=== PATIENT | female | born 1995 | race African-American/Black ===

== ENCOUNTER 2017-05-10 21:29 | Emergency (ER) | payer BC, OTHER ==
[~2017-05-10] VITALS: Ht 157.5 cm; Wt 90.0 kg
[~2017-05-10 21:29] MED LIST: Z.0.NO CURRENT MEDS
[2017-05-10 21:31] VITALS: BP 141/58; PULSE 94; RESP 16; TEMP 99.5; O2SAT 99
--- NOTE | 2017-05-10 22:32 | PD ---
HPI Chief Complaint: Abdominal Pain Time Seen by Provider: 22:28 Travel History International Travel<30 days: No Contact w/Intl Traveler<30days: No Traveled to known affect area: No History of Present Illness HPI 21-year-old female that presents to the ED for evaluation of left abdominal pain. Patient has a history of recent about a month ago. Per patient she delivered twins. Patient comes here because she developed about 3 hours ago pain to her left abdomen. Patient points to the mid left abdomen as the area of most pain. Patient denies any injury or trauma. She denies any vaginal bleeding. Per patient she came off of her menses or bleeding from her C -section about a week ago. She denies any STD exposure. She denies again. She states that she is breast-feeding. She states that the pain is 5 out of 10. She denies any nausea or vomiting. No bowel movement issues. Nobody is sick in the house. No trauma. No allergies to medication. PFSH Past Medical History Diminished Hearing: No Immunizations Current: Yes ?: Not : 2 Para: 3 Past Surgical History Section: Yes Ear Surgery: Yes Social History Alcohol Use: Yes (OCC) Tobacco Use: No Substance Use: No Allergies-Medications (Allergen,Severity, Reaction): Coded Allergies: No Known Allergies (Verified , 05/10/17) Reported Meds & Prescriptions Reported Meds & Active Scripts Active No Active Prescriptions or Reported Medications Review of Systems Except as stated in HPI: all other systems reviewed are Neg Physical Exam Narrative GENERAL: SKIN: Warm and dry. HEAD: Atraumatic. Normocephalic. EYES: Pupils equal and round. No scleral icterus. No injection or drainage. ENT: No nasal bleeding or discharge. Mucous membranes pink and moist. Tongue is midline. No uvula deviation. NECK: Trachea midline. No JVD. CARDIOVASCULAR: Regular rate and rhythm. No murmurs, S3, S4. RESPIRATORY: No accessory muscle use. Clear to auscultation. Breath sounds equal bilaterally. GASTROINTESTINAL: Abdomen soft, patient has tenderness to palpation on the left mid abdomen as well as in the lower abdomen, nondistended. Hepatic and splenic margins not palpable. Pelvic exam: The with female nurse present. Patient has some whitish smelly discharge coming from the vagina. No obvious mass or adnexal tenderness. No bleeding. MUSCULOSKELETAL: Extremities without clubbing, cyanosis, or edema. No obvious deformities. NEUROLOGICAL: Awake and alert. No obvious cranial nerve deficits. Motor grossly within normal limits. Five out of 5 muscle strength in the arms and legs. Normal speech. PSYCHIATRIC: Appropriate mood and affect; insight and judgment normal. Data Data Last Documented VS Vital Signs Date Time Temp Pulse Resp B/P Pulse Ox O2 Delivery O2 Flow Rate FiO2 05/10/17 21:31 99.5 94 16 141/58 99 Room Air Orders Complete Blood Count With Diff (05/10/17 22:21) Comprehensive Metabolic Panel (05/10/17 22:21) Lipase (05/10/17 22:21) Urinalysis - C+S If Indicated (05/10/17 22:21) Iv Access Insert/Monitor (05/10/17 22:21) Ed Urine Pregnancytest Poc (05/10/17 22:21) Gc And Chlamydia Pcr (05/10/17 22:21) Wet Prep Profile (05/10/17 22:21) MDM Medical Decision Making Medical Screen Exam Complete: Yes Emergency Medical Condition: Yes Medical Record Reviewed: Yes Differential Diagnosis Abdominal pain versus pelvic pain versus vaginal discharge versus vaginitis versus UTI versus STD Narrative Course 21-year-old female that presents to the ED for evaluation of left lower abdominal pain. Patient was properly examined and was found to have signs and symptoms consistent with appears to be abdominal discomfort. Unclear etiology. Labs and imaging recommended. Case will be signed out to my attending pending disposition. Scripts No Active Prescriptions or Reported Meds Alvin Davis May 10, 2017 22:32
[2017-05-10 22:49] LABS: BASOPHIL % 0.2 % (0.0-2.0); EOSINOPHIL # 0.1 TH/MM3 (0-0.4); EOSINOPHIL % 0.9 % (0.0-4.0); HEMATOCRIT 36.2 % (35.0-46.0); HEMO FLAGS DIFF FINAL; LYMPH % 29.2 % (9.0-44.0); LYMPHOCYTE # 2.7 TH/MM3 (1.0-4.8); MEAN CORPUSCULAR HEMOGLOBIN 24.2 PG (27.0-34.0); MEAN CORPUSCULAR HGB CONC 31.4 % (32.0-36.0); MONO % 4.5 % (0.0-8.0); NEUT % 65.2 % (16.0-70.0); PLATELET COUNT 232 TH/MM3 (150-450); RED CELL DISTRIBUTION WIDTH 22.1 % (11.6-17.2); WHITE BLOOD COUNT 9.2 TH/MM3 (4.0-11.0)
[2017-05-10 23:04] LABS: ANION GAP 4 MEQ/L (5-15); AST (GOT) 11 U/L (15-37); BICARBONATE 26.8 MEQ/L (21.0-32.0); BLOOD UREA NITROGEN 11 MG/DL (7-18); CHLORIDE 108 MEQ/L (98-107); GLOMERULAR FILTRATION RATE 113 ML/MIN (>89); POTASSIUM 4.1 MEQ/L (3.5-5.1); SODIUM (NA) 139 MEQ/L (136-145)
[2017-05-10 23:06] LABS: ALT (GPT) 17 U/L (10-53)
[2017-05-10 23:08] LABS: ALKALINE PHOSPHATASE 103 U/L (45-117); TOTAL BILIRUBIN ADULT 0.3 MG/DL (0.2-1.0)
[2017-05-11 01:26] LABS: BLOOD, URINE NEG (NEG); COMMENT (UR) CULT NOT INDICATED; CULTURE IF INDICATED CULT NOT INDICATED; GLUCOSE,URINE NEG (NEG); KETONE, URINE NEG (NEG); MUCUS URINE FEW /lpf (OCC); NITRITE,URINE NEG (NEG); PH, URINE 6.5 (5.0-8.5); SQUAMOUS EPITHELIAL CELL URINE 2 /hpf (0-5); URINE COLOR YELLOW (YELLW/STRAW)
--- NOTE | 2017-05-11 02:26 | PD ---
Physical Exam Narrative GENERAL: Well-nourished, well-developed patient. SKIN: Warm and dry. HEAD: Normocephalic and atraumatic. EYES: No injection or drainage. ENT: No nasal drainage noted. NECK: Supple, trachea midline. CARDIOVASCULAR: Regular rate and rhythm RESPIRATORY:no increased effort. No accessory muscle use. GASTROINTESTINAL: Abdomen soft, ttp in llq, nondistended. NEUROLOGICAL: Awake and alert. Motor and sensory grossly within normal limits. Normal speech. Data Data Last Documented VS Vital Signs Date Time Temp Pulse Resp B/P Pulse Ox O2 Delivery O2 Flow Rate FiO2 05/10/17 21:31 99.5 94 16 141/58 99 Room Air Orders Complete Blood Count With Diff (05/10/17 22:21) Comprehensive Metabolic Panel (05/10/17 22:21) Lipase (05/10/17 22:21) Urinalysis - C+S If Indicated (05/10/17 22:21) Iv Access Insert/Monitor (05/10/17 22:21) Ed Urine Pregnancytest Poc (05/10/17 22:21) Gc And Chlamydia Pcr (05/10/17 22:21) Wet Prep Profile (05/10/17 22:21) Labs Laboratory Tests Test 05/10/17 05/10/17 05/11/17 22:26 22:45 01:13 White Blood Count 9.2 TH/MM3 Red Blood Count 4.70 MIL/MM3 Hemoglobin 11.4 GM/DL Hematocrit 36.2 % Mean Corpuscular Volume 77.0 FL Mean Corpuscular Hemoglobin 24.2 PG Mean Corpuscular Hemoglobin 31.4 % Concent Red Cell Distribution Width 22.1 % Platelet Count 232 TH/MM3 Mean Platelet Volume 8.2 FL Neutrophils (%) (Auto) 65.2 % Lymphocytes (%) (Auto) 29.2 % Monocytes (%) (Auto) 4.5 % Eosinophils (%) (Auto) 0.9 % Basophils (%) (Auto) 0.2 % Neutrophils # (Auto) 6.0 TH/MM3 Lymphocytes # (Auto) 2.7 TH/MM3 Monocytes # (Auto) 0.4 TH/MM3 Eosinophils # (Auto) 0.1 TH/MM3 Basophils # (Auto) 0.0 TH/MM3 CBC Comment DIFF FINAL Differential Comment Sodium Level 139 MEQ/L Potassium Level 4.1 MEQ/L Chloride Level 108 MEQ/L Carbon Dioxide Level 26.8 MEQ/L Anion Gap 4 MEQ/L Blood Urea Nitrogen 11 MG/DL Creatinine 0.77 MG/DL Estimat Glomerular Filtration 113 ML/MIN Rate Random Glucose 94 MG/DL Calcium Level 8.9 MG/DL Total Bilirubin 0.3 MG/DL Aspartate Amino Transf 11 U/L (AST/SGOT) Alanine Aminotransferase 17 U/L (ALT/SGPT) Alkaline Phosphatase 103 U/L Total Protein 7.3 GM/DL Albumin 3.4 GM/DL Lipase 104 U/L Clue Cells (Wet Prep) NONE SEEN Vaginal Trichomonas (Wet Prep) NONE SEEN Vaginal Yeast (Wet Prep) NONE SEEN Urine Color YELLOW Urine Turbidity CLEAR Urine pH 6.5 Urine Specific [place] 1.017 Urine Protein NEG mg/dL Urine Glucose (UA) NEG mg/dL Urine Ketones NEG mg/dL Urine Occult Blood NEG Urine Nitrite NEG Urine Bilirubin NEG Urine Urobilinogen LESS THAN 2.0 MG/DL Urine Leukocyte Esterase NEG Urine RBC 4 /hpf Urine WBC 2 /hpf Urine Squamous Epithelial 2 /hpf Cells Urine Mucus FEW /lpf Microscopic Urinalysis Comment CULT NOT INDICATED MDM Supervised Visit with ADDISON: Yes Interpretation(s) CBC & BMP Diagram 05/10/17 22:26 beta is negative Narrative Course I, Dr. menon, have reviewed the advance practice practitioner's documentation and am in agreement, met with the patient face to face, made the diagnosis, and the medical decision making was done by me. *My assessment and Findings: 21-year-old female presents with left lower quadrant abdominal pain. test is negative. Advised pelvic ultrasound to rule out torsion given the location. While ultrasound was pending patient elected to leave AMA while I was with another patient before I could talk with her Diagnosis Primary Impression: Abdominal pain Qualified Code: R10.32 - Left lower quadrant pain Scripts No Active Prescriptions or Reported Meds Disposition: 07 AGAINST MEDICAL ADVICE Condition: Stable Izzy Menon MD May 11, 2017 02:26
[2017-05-11 04:15] LABS: CHLAMYDIA PCR NOT DETECTED (NOT DETECT); NEISSERIA PCR NOT DETECTED (NOT DETECT)
== END 2017-05-11 02:05 | disposition left against medical advice (07) ==
LOC: NEPC 21:29
DX: R10.32 Left lower quadrant pain (principal); N89.8 Other specified noninflammatory disorders of vagina; Z53.29 Procedure and treatment not carried out because of patient's decision for other reasons
CPT/HCPCS: 80053; 81001; 83690; 84703; 85025; 87210; 87491; 87591; 99284